=== PATIENT | male | born 1970 | race Caucasian/White ===

== ENCOUNTER 2020-07-05 05:52 | Day surgery (SDC) | payer MEDICAID ==
[~2020-07-05] VITALS: Ht 174 cm; Wt 88.0 kg
[~2020-07-05 05:52] MED LIST: COUMADIN5 MG PO; KEPPRA750 M2 PO; LEXAPRO20 MG PO; LIPITOR80 M1 PO; MEDDOSEPAK PO; METOPROLOL SUCC50 MG PO; QUETIAPINE FUMA50 MG PO; RISPERIDONE4 M1 PO; WARFARIN3 MG PO; XANAX1 MG PO
[2020-07-05 08:32] VITALS: BP 149/76
== END 2020-07-05 09:15 | disposition home or self-care (01) ==
LOC: ORM 05:52
PROVIDERS: ATTEND Anesthesiology Pain Medicine
DX: M54.5 Low back pain (principal); M51.36 Other intervertebral disc degeneration, lumbar region; Z01.84 Encounter for antibody response examination

== ENCOUNTER 2020-09-06 07:55 | Day surgery (SDC) | payer MEDICAID ==
[~2020-09-06] VITALS: Ht 175.3 cm; Wt 88.0 kg
[~2020-09-06 07:55] MED LIST changes: -COUMADIN5 MG PO; +WARFARIN7.5 MG PO
[2020-09-06 11:05] VITALS: BP 141/77
[2020-09-06] MEDS ORDERED: NORCO1 TA1 PO ×2 (11:22→11:24)
== END 2020-09-06 14:22 | disposition other institution (70) ==
LOC: ORM 07:55
PROVIDERS: ATTEND Anesthesiology Pain Medicine
DX: M54.5 Low back pain (principal); M12.9 Arthropathy, unspecified; Z01.84 Encounter for antibody response examination